=== PATIENT | male | born 1980 | race Caucasian/White ===

== ENCOUNTER 2019-08-30 10:38 | Inpatient (IN) | payer OTHER ==
[2019-08-30 11:06] VITALS: BMI 24.7
--- NOTE | 2019-08-30 11:27 | HP ---
COWS - Scale Resting Pulse: 1= [place] 81-100 Sweatin= Chills/Flushing Restless Observation: 1= Difficult to Sit Still Pupil Size: 1= Pupils >than Normal Bone or Joint Aches: 2= Severe Diffuse Aches Runny Nose/ Eye Tearin= Runny Nose/Eyes GI Upset > 30mins: 2= Nausea/Diarrhea Tremor Observation: 2= Slight Tremor Visible Yawning Observation: 1= 1-2x During Session Anxiety or Irritability: 2=Irritable/Anxious Goose Flesh Skin: 0=Smooth Skin COWS Score: 15 CIWA Score - Admission Criteria OASAS Guidelines: Admission for Medically Managed Detox: Requires at least one of the followin. CIWA greater than 12 2. Seizures within the past 24 hours 3. Delirium tremens within the past 24 hours 4. Hallucinations within the past 24 hours 5. Acute intervention needed for co occurring medical disorder 6. Acute intervention needed for co occurring psychiatric disorder 7. Severe withdrawal that cannot be handled at a lower level of care (continued vomiting, continued diarrhea, abnormal vital signs) requiring intravenous medication and/or fluids 8. Admitting History and Physical - Admission Chief Complaint: i need help to stop using heroin and cocaine History Source: Patient - Smoking History Smoking history: Current every day smoker Have you smoked in the past 12 months: Yes Aproximately how many cigarettes per day: 5 - Alcohol/Substance Use Hx Alcohol Use: No History of Substance Use: reports: Cocaine, Heroin - Social History Usual Living Arrangement: Yes: Alone Occupation: employ [employer] History of Recent Travel: No Other Social History: employed,smoke cigarette Admission [facility] Chief Complaint: i need help to stop using heroin and cocaine Allergies/Adverse Reactions: Allergies Allergy/AdvReac Type Severity Reaction Status Date / Time No Known Allergies Allergy Verified 08/30/19 10:57 History of Present Illness: this 39 years old male with heroin and cocaine dependence,seeking detox, withdrawal symptom, denied seizure denied syncope weight loss nicotine dependence last detox 2004 last rehab [facility] 2016 longest sobriety 3 years plan for out patient program after detox - Ebola screening Have you traveled outside of the country in the last 21 days: No (N) Have you had contact with anyone from an Ebola affected area: No Do you have a fever: No - Review of Systems Constitutional: Loss of Appetite, Malaise, Night Sweats, Changes in sleep EENT: reports: Tearing, Nose Congestion Respiratory: reports: No Symptoms reported Cardiac: reports: No Symptoms Reported GI: reports: Diarrhea, Nausea, Poor Appetite : reports: No Symptoms Reported Musculoskeletal: reports: Back Pain, Joint Pain, Muscle Pain Integumentary: reports: Dryness Neuro: reports: Headache, Tremors Endocrine: reports: No Symptoms Reported Hematology: reports: No Symptoms Reported Psychiatric: reports: No Sypmtoms Reported, Judgement Intact, Mood/Affect Appropiate, Orientated x3 Other Systems: Reviewed and Negative Patient History - Patient Medical History Hx Anemia: No Hx Asthma: Yes Hx Chronic Obstructive Pulmonary Disease (COPD): No Hx Cancer: No Hx Cardiac Disorders: No Hx Congestive Heart Failure: No Hx Hypertension: No Hx Hypercholesterolemia: No Hx Pacemaker: No HX Cerebrovascular Accident: No Hx Seizures: No Hx Dementia: No Hx Diabetes: No Hx Gastrointestinal Disorders: No Hx Liver Disease: No Hx Genitourinary Disorders: No Hx Sexually Transmitted Disorders: No Hx Renal Disease (ESRD): No Hx Thyroid Disease: No Hx Human Immunodeficiency Virus (HIV): No (last 2015) Hx Hepatitis C: No Hx Depression: No Hx Suicide Attempt: No Hx Bipolar Disorder: No Hx Schizophrenia: No Other Medical History: no suicidal,no homicidal - Patient Surgical History Past Surgical History: No - PPD History Previous Implant?: Yes Documented Results: Negative w/o proof Implanted On Prior [facility] Admission?: No PPD to be Administered?: Yes - Smoking Cessation Smoking history: Current every day smoker Have you smoked in the past 12 months: Yes Aproximately how many cigarettes per day: 5 Cigars Per Day: 0 Hx Chewing Tobacco Use: No Initiated information on smoking cessation: Yes 'Breaking Loose' booklet given: 08/30/19 - Substance & Tx. History Hx Alcohol Use: No Substance Use Type: Cocaine, Heroin Hx Substance Use Treatment: Yes ([address]) - Substances abused Heroin Substance route: Inhalation Frequency: Daily Amount used: 5 bags or more Age of first use: 21 Date of last use: 08/30/19 Cocaine Substance route: Inhalation Frequency: 1-2 times per week Amount used: 1/2 gram Age of first use: 21 Date of last use: 08/29/19 Admission Physical Exam BHS - Vital Signs Vital Signs: Vital Signs - 24 hr 08/30/19 11:00 Temperature 98.1 F Pulse Rate 87 Respiratory 20 Rate Blood Pressure 101/69 - Physical General Appearance: Yes: Moderate Distress, Tremorous, Irritable, Sweating, Anxious HEENTM: Yes: Normal ENT Inspection, LIZZ, Pharynx Normal Respiratory: Yes: Within Normal Limits, Lungs Clear, Normal Breath Sounds Neck: Yes: Within Normal Limits, Supple, Trachea in good position Breast: Yes: Within Normal Limits Cardiology: Yes: Within Normal Limits, Regular Rhythm, Regular Rate, S1, S2 Abdominal: Yes: Within Normal Limits, Normal Bowel Sounds, Non Tender, Flat Genitourinary: Yes: Within Normal Limits Back: Yes: Muscle Spasm Musculoskeletal: Yes: Back pain, Joint Stiffness, Muscle Pain Extremities: Yes: Tremors Neurological: Yes: [employer] commanding [employer] II-XII NML intact, Fully Oriented, Alert, Motor Strength 5/5 Integumentary: Yes: Dry Lymphatic: Yes: Within Normal Limits - Diagnostic (1) Opioid dependence with withdrawal Current Visit: Yes Status: Acute (2) Cocaine dependence Current Visit: Yes Status: Acute (3) Nicotine dependence Current Visit: Yes Status: Acute (4) Asthma Current Visit: Yes Status: Acute Cleared for Admission [facility] - Detox or Rehab [facility] Level of Care: Medically Managed Detox Regimen/Protocol: Methadone Inpatient Rehab Admission - Rehab Decision to Admit Inpatient rehab admission?: No
[2019-08-30] MEDS ORDERED: METHADONE HCL 10 MG TABLET (FOR DETOX USE ONLY) PO ONE (11:33)
[2019-08-30] MEDS ORDERED: hydrOXYzine PAMOATE 25 MG CAPSULE (FP) PO PRN (11:33)
[2019-08-30] MEDS ORDERED: IBUPROFEN 400 MG TABLET (FP) PO PRN (11:33)
[2019-08-30] MEDS ORDERED: MAGNESIUM HYDROX 2400MG/30ML ORAL SUSPENSION 30 ML CUP PO PRN (11:33)
[2019-08-30] MEDS ORDERED: MENTHOL/PHENOL 1 EACH UD MM PRN (11:33)
[2019-08-30] MEDS ORDERED: ACETAMINOPHEN 325 MG TABLET (FP) PO PRN ×2 (11:33)
[2019-08-30] MEDS ORDERED: BISMUTH SUBSALICYLATE 524 MG/30 ML UD PO PRN (11:33)
[2019-08-30] MEDS ORDERED: cloNIDine HCL 0.1 MG TABLET PO PRN (11:33)
[2019-08-30] MEDS ORDERED: MAGNESIUM CITRATE 300 ML BOTTLE PO PRN (11:33)
[2019-08-30] MEDS ORDERED: MAG HYDROX/AL HYDROX/SIMETH 30 ML UNIT-DOSE CUP PO PRN (11:33)
[2019-08-30] MEDS ORDERED: ALBUTEROL SO4 8 GM HFA INHALER IH PRN (11:39)
[2019-08-30] MEDS: diazePAM 5 MG TABLET PO PRN ×2 (13:02→22:11)
[2019-08-30] MEDS: BUDESONIDE/FORMETEROL FUMARATE 80/4.5 mcg INHALER IH SCH (22:09)
[2019-08-30] MEDS: THIAMINE HCL 100 MG TABLET (FP) PO SCH (22:09)
[2019-08-30] MEDS: MELATONIN 5 MG TABLETS PO PRN (22:12)
[2019-08-31] MEDS ORDERED: METHADONE HCL 5 MG TABLET (FOR DETOX USE ONLY) PO ONE (10:00)
[2019-08-31 10:01] LABS: ALBUMIN 3.3 g/dl (3.4-5.0); BILIRUBIN,TOTAL 0.2 mg/dL (0.2-1); BLOOD UREA NITROGEN 15.1 mg/dL (7-18); CALCIUM 8.6 mg/dL (8.5-10.1); CREATININE 0.9 mg/dL (0.55-1.3); POTASSIUM 4.2 mmol/L (3.5-5.1); TOT PROT 5.9 g/dl (6.4-8.2)
[2019-08-31] MEDS: BUDESONIDE/FORMETEROL FUMARATE 80/4.5 mcg INHALER IH SCH ×2 (10:10→22:14)
[2019-08-31] MEDS: PRENATAL VITAMINS W/ FOLIC ACID TABLET (FP) PO SCH (10:11)
[2019-08-31] MEDS: diazePAM 5 MG TABLET PO PRN ×3 (10:12→22:16)
[2019-08-31] MEDS: METHOCARBAMOL 500 MG TABLET PO PRN ×2 (10:12→18:11)
[2019-08-31 10:14] LABS: HEMATOCRIT 34.1 % (35.4-49); HEMOGLOBIN 11.7 GM/dL (11.7-16.9); MCHC 34.4 g/dl (32.0-35.9); MEAN PLT VOLUME 9.8 fl (7.5-11.1); PLATELET COUNT 195 K/MM3 (134-434); RBC 3.79 M/mm3 (4.00-5.60); WHITE BLOOD COUNT 5.6 K/mm3 (4.0-10.0)
--- NOTE | 2019-08-31 10:26 | PN ---
BHS COWS - Scale Resting Pulse: 1= [place] 81-100 Sweatin=Flushed/Facial Moisture Restless Observation: 1= Difficult to Sit Still Pupil Size: 0= Normal to Room Light Bone or Joint Aches: 2= Severe Diffuse Aches Runny Nose/ Eye Tearin= Nasal Congestion GI Upset > 30mins: 0= None Tremor Observation of Outstretched Hands: 1= Tremor Dennis, Not Seen Yawning Observation: 1= 1-2x During Session Anxiety or Irritability: 1=Feels Anxious/Irritable Goose Flesh Skin: 0=Smooth Skin COWS Score: 10 BHS Progress Note (SOAP) Subjective: sweats shakes interrupted sleep agitation body aches Objective: 08/31/19 10:25 Vital Signs Temperature 98.0 F 08/31/19 09:45 Pulse Rate 93 H 08/31/19 09:45 Respiratory Rate 18 08/31/19 09:45 Blood Pressure 116/60 08/31/19 09:45 O2 Sat by Pulse Oximetry (%) Laboratory Tests 08/31/19 08/31/19 06:50 06:50 Sodium 140 Potassium 4.2 Chloride 105 Carbon Dioxide 31 Anion Gap 4 L BUN 15.1 Creatinine 0.9 Est GFR (CKD-EPI)AfAm 125.13 Est GFR (CKD-EPI)NonAf 107.97 Random Glucose 93 Calcium 8.6 Total Bilirubin 0.2 AST 14 L ALT 25 Alkaline Phosphatase 43 L Total Protein 5.9 L Albumin 3.3 L RPR Titer Nonreactive labs noted aaox3 ambulating no acute distress Assessment: 08/31/19 10:26 withdrawals Plan: continue detox increase fluids
--- NOTE | 2019-08-31 14:07 | EKG ---
Test Reason : Blood Pressure : / mmHG Vent. Rate : 062 BPM Atrial Rate : 062 BPM P-R Int : 160 ms QRS Dur : 082 ms QT Int : 412 ms P-R-T Axes : 068 074 052 degrees QTc Int : 418 ms NORMAL SINUS RHYTHM NORMAL ECG NO PREVIOUS ECGS AVAILABLE Confirmed by GIANA HIGHTOWER MD ([id number]) on 08/31/2019 2:07:28 PM Referred By: Confirmed By:GIANA HIGHTOWER MD
[2019-08-31] MEDS: THIAMINE HCL 100 MG TABLET (FP) PO SCH (22:14)
[2019-08-31] MEDS: MELATONIN 5 MG TABLETS PO PRN (22:17)
[2019-09-01 09:45] VITALS: BP 129/80; PULSE 106; TEMP 98.4
[2019-09-01] MEDS ORDERED: METHADONE HCL 10 MG TABLET (FOR DETOX USE ONLY) PO ONE (10:00)
--- NOTE | 2019-09-01 10:07 | PN ---
BHS COWS - Scale Resting Pulse: 0= NE 80 or Below Sweatin= Chills/Flushing Restless Observation: 1= Difficult to Sit Still Pupil Size: 0= Normal to Room Light Bone or Joint Aches: 1= Mild Discomfort Runny Nose/ Eye Tearin= None GI Upset > 30mins: 0= None Tremor Observation of Outstretched Hands: 0= None Yawning Observation: 0= None Anxiety or Irritability: 1=Feels Anxious/Irritable Goose Flesh Skin: 0=Smooth Skin COWS Score: 4 BHS Progress Note (SOAP) Subjective: Pt completing OUD detox tomorrow. Would like to go to outpt treatment after discharge at [facility]. d/w pt suboxone or methadone MAT- pt prefers abstinence Objective: 09/01/19 10:03 Vital Signs - 24 hr 08/31/19 08/31/19 08/31/19 13:37 16:38 20:20 Temperature 98.6 F 97.3 F L 96.8 F L Pulse Rate 90 64 82 Respiratory 18 18 18 Rate Blood Pressure 147/69 119/67 118/65 09/01/19 09/01/19 09/01/19 00:30 03:30 06:00 Temperature 97.7 F Pulse Rate 70 Respiratory 18 18 18 Rate Blood Pressure 121/59 L 09/01/19 09:44 Temperature 98.4 F Pulse Rate 106 H Respiratory 18 Rate Blood Pressure 129/80 restless, agitated a/p: OUD- methadone detox protocol. f/u outpt at [facility] Plan: pt to be discharged tomorrow-
[2019-09-01] MEDS: BUDESONIDE/FORMETEROL FUMARATE 80/4.5 mcg INHALER IH SCH (10:19)
[2019-09-01] MEDS: PRENATAL VITAMINS W/ FOLIC ACID TABLET (FP) PO SCH (10:19)
--- NOTE | 2019-09-01 12:07 | DS ---
[facility] Detox Discharge Summary Admission Date: 08/30/19 Discharge Date: 09/01/19 - History Present History: Opioid Dependence - Physical Exam Results Vital Signs: Vital Signs Temperature 98.4 F 09/01/19 09:44 Pulse Rate 106 H 09/01/19 09:44 Respiratory Rate 18 09/01/19 09:44 Blood Pressure 129/80 09/01/19 09:44 O2 Sat by Pulse Oximetry (%) Pertinent Admission Physical Exam Findings: Pt states would like to leave today- was to have rec'd 5 mg methadone dose tomorrow- d/w pt at length re MAT methadone/Bupe/vivitrol. Pt states would like try to abstinence- will get this from [facility] outpt. Pt does not need any meds alert and oriented today - Treatment Hospital Course: Detox Protocol Followed, Detoxed Safely, Responded well, Discharged Condition Good Patient has Accepted a Rehab Referral to: [facility] - Medication Discharge Medications: Ambulatory Orders Fluticasone/Salmeterol [Advair 250-50 Diskus] 1 each IH BID 08/30/19 - AMA Did Patient Leave Against Medical Advice: No
[2019-09-02] MEDS ORDERED: METHADONE HCL 5 MG TABLET (FOR DETOX USE ONLY) PO ONE (06:00)
== END 2019-09-01 12:55 | disposition home or self-care (01) | DRG 773 ==
LOC: YASAS 10:38 → Y6N 12:18
PROVIDERS: ADMIT Allergy & Immunology; ATTEND Allergy & Immunology
PROC: HZ2ZZZZ Detoxification Services for Substance Abuse Treatment (ICD-10-PCS; principal; 2019-08-30)
DX: F11.23 Opioid dependence with withdrawal (principal); F14.20 Cocaine dependence, uncomplicated; F17.210 Nicotine dependence, cigarettes, uncomplicated; J45.909 Unspecified asthma, uncomplicated
CPT/HCPCS: 36415; 80053; 85027; 86593; 87389; 93005; 93010

== ENCOUNTER 2024-05-09 11:09 | Inpatient (IN) | payer OTHER ==
[2024-05-09 12:51] VITALS: BMI 25.2
[2024-05-09] MEDS ORDERED: POLYETHYLENE GLYCOL (HEALTHYLAX) 3350 17 GM PACKET PO PRN (13:19)
[2024-05-09] MEDS ORDERED: ACETAMINOPHEN 325 MG TABLET (FP) PO PRN (13:19)
[2024-05-09] MEDS ORDERED: MAG HYDROX/AL HYDROX/SIMETH 30 ML UNIT-DOSE CUP PO PRN (13:19)
[2024-05-09] MEDS ORDERED: BENZOCAINE/MENTHOL (CHLORASEPTIC ) LOZENGE MM PRN (13:19)
[2024-05-09] MEDS ORDERED: BISMUTH SUBSALICYLATE 262 MG/15 ML BTL PO PRN (13:19)
[2024-05-09] MEDS ORDERED: MAGNESIUM HYDROX 2400MG/30ML ORAL SUSPENSION 30 ML CUP PO PRN (13:19)
[2024-05-09] MEDS ORDERED: NALOXONE HCL 0.4 MG/ML VIAL IM PRN (13:19)
[2024-05-09] MEDS ORDERED: guaiFENesin 600 MG TABLET.ER (FP) PO PRN (13:19)
[2024-05-09] MEDS ORDERED: NALOXONE (NARCAN) HCL 4 MG/0.1 ML SPRAY NS PRN (13:19)
[2024-05-09] MEDS ORDERED: BENZONATATE 200 MG CAPSULE PO PRN (13:19)
[2024-05-09] MEDS ORDERED: IBUPROFEN 400 MG TABLET (FP) PO PRN (13:19)
[2024-05-09] MEDS ORDERED: methaDONE HCL 10 MG TABLET (FOR DETOX USE ONLY) ONE (13:41)
[2024-05-09] MEDS ORDERED: BUPRENORPHINE/NALOXONE 0.5 MG/0.125 MG FILM ONE (13:41)
[2024-05-09] MEDS: methaDONE HCL 10 MG TABLET (FOR DETOX USE ONLY) PO ONE (13:59)
[2024-05-09] MEDS: BUPRENORPHINE/NALOXONE 0.5 MG/0.125 MG FILM SL ONE ×2 (14:02→23:04)
[2024-05-09] MEDS: PRENATAL VITAMINS W/ FOLIC ACID TABLET (FP) PO SCH (14:02)
[2024-05-09] MEDS: NICOTINE 7 MG/24 HOURS TOPICAL PATCH TD SCH (14:02)
[2024-05-09] MEDS ORDERED: cloNIDine HCL 0.1 MG TABLET ONE (14:05)
[2024-05-09] MEDS: cloNIDine HCL 0.1 MG TABLET PO SCH (14:08)
[2024-05-09] MEDS: BUDESONIDE/FORMETEROL FUMARATE 80/4.5 mcg INHALER IH SCH (14:20)
[2024-05-09] MEDS: ALBUTEROL SO4 HFA INHALER IH PRN (14:25)
[2024-05-09] MEDS: THIAMINE 100 MG TABLET PO SCH (22:43)
[2024-05-09] MEDS: MELATONIN 5 MG TABLETS PO SCH (22:43)
[2024-05-10] MEDS: BUPRENORPHINE/NALOXONE 0.5 MG/0.125 MG FILM SL SCH (09:10)
[2024-05-10 11:38] LABS: POTASSIUM 4.7 mmol/L (3.5-5.1)
[2024-05-10 11:42] LABS: HEMATOCRIT 36.2 % (35.4-49); HEMOGLOBIN 12.4 GM/dL (11.7-16.9); MCH 31.4 pg (25.7-33.7); MCHC 34.3 g/dl (32.0-35.9); MEAN CELL VOLUME 91.4 fl (80-96); PLATELET COUNT 262 10^3/uL (134-434); RBC 3.96 M/mm3 (4.00-5.60); RDW 14.3 % (11.9-15.9); WHITE BLOOD COUNT 5.3 K/mm3 (4.0-10.0)
[2024-05-10 11:57] LABS: ALBUMIN 3.3 g/dl (3.4-5.0); BLOOD UREA NITROGEN 11.2 mg/dL (7-18); CALCIUM 9.2 mg/dL (8.5-10.1)
[2024-05-10 12:01] LABS: BILIRUBIN,TOTAL 0.4 mg/dL (0.2-1); CREATININE 0.9 mg/dL (0.55-1.3); TOT PROT 6.6 g/dl (6.4-8.2)
[2024-05-10] MEDS: hydrOXYzine PAMOATE 25 MG CAPSULE (FP) PO PRN (17:27)
[2024-05-10] MEDS: METHOCARBAMOL 500 MG TABLET PO PRN (22:22)
[2024-05-11] MEDS: IBUPROFEN 600 MG TABLET (FP) PO PRN (06:43)
[2024-05-11] MEDS: BUPRENORPHINE/NALOXONE 2 MG/0.5 MG FILM PACKET SL SCH (09:19)
[2024-05-11] MEDS: methaDONE HCL 10 MG TABLET (FOR DETOX USE ONLY) PO ONE (09:19)
[2024-05-12] MEDS: DICYCLOMINE HCL 10 MG CAPSULE PO PRN (01:06)
[2024-05-12] MEDS: LOPERAMIDE HCL 2 MG CAPSULE PO PRN (06:00)
[2024-05-12] MEDS: BUPRENORPHINE/NALOXONE 4 MG/1 MG FILM PACKET SL SCH (09:59)
[2024-05-13] MEDS: MELATONIN 5 MG TABLETS PO ONE (00:52)
[2024-05-13] MEDS: methaDONE HCL 10 MG TABLET (FOR DETOX USE ONLY) PO ONE (10:17)
[2024-05-13] MEDS: BUPRENORPHINE/NALOXONE 8 MG/2 MG FILM PACKET SL SCH (10:17)
[2024-05-14] MEDS: BUPRENORPHINE/NALOXONE 8 MG/2 MG FILM PACKET SL ONE (09:21)
[2024-05-14] MEDS ORDERED: BUPRENORPHINE/NALOXONE 8 MG/2 MG FILM PACKET SL SCH (10:00)
[2024-05-14] MEDS: ONDANSETRON *ODT* 4 MG TABLET SL PRN (12:39)
[2024-05-14 13:08] VITALS: BP 136/85; PULSE 70; RESP 18; TEMP 97.8
== END 2024-05-14 13:45 | disposition home or self-care (01) | DRG 773 ==
LOC: YASAS 11:09 → Y6N 13:30
PROVIDERS: ADMIT Allergy & Immunology; ATTEND Surgery
PROC: HZ2ZZZZ Detoxification Services for Substance Abuse Treatment (ICD-10-PCS; principal; 2024-05-09)
DX: F11.23 Opioid dependence with withdrawal (principal); F14.20 Cocaine dependence, uncomplicated; F17.213 Nicotine dependence, cigarettes, with withdrawal; J45.20 Mild intermittent asthma, uncomplicated; G47.00 Insomnia, unspecified; Z59.02 Unsheltered homelessness
CPT/HCPCS: 36415; 80053; 80305; 80307; 85027; 86780; 87811; 93005; 93010; Q0162

== ENCOUNTER 2024-07-21 12:04 | Inpatient (IN) | payer OTHER ==
[2024-07-21 13:32] VITALS: BMI 26.6
[2024-07-21] MEDS ORDERED: ALBUTEROL SO4 HFA INHALER IH PRN (16:18)
[2024-07-21] MEDS ORDERED: methaDONE HCL 10 MG TABLET (FOR DETOX USE ONLY) ONE (16:58)
[2024-07-21] MEDS: methaDONE HCL 10 MG TABLET (FOR DETOX USE ONLY) PO ONE (17:01)
[2024-07-21] MEDS: cloNIDine HCL 0.1 MG TABLET PO SCH (17:36)
[2024-07-21] MEDS: BUPRENORPHINE/NALOXONE 0.5 MG/0.125 MG FILM SL ONE (22:55)
[2024-07-21] MEDS: BUDESONIDE/FORMETEROL FUMARATE 80/4.5 mcg INHALER IH SCH (22:56)
[2024-07-22] MEDS: BUPRENORPHINE/NALOXONE 0.5 MG/0.125 MG FILM SL SCH (10:18)
[2024-07-23] MEDS: ESCITALOPRAM OXALATE 10 MG TABLET PO SCH (09:31)
[2024-07-23] MEDS: methaDONE HCL 10 MG TABLET (FOR DETOX USE ONLY) PO ONE (09:31)
[2024-07-23] MEDS: BUPRENORPHINE/NALOXONE 2 MG/0.5 MG FILM PACKET SL SCH (09:32)
[2024-07-23 14:05] LABS: HEMATOCRIT 37.4 % (35.4-49); HEMOGLOBIN 12.6 GM/dL (11.7-16.9); MCH 31.2 pg (25.7-33.7); MCHC 33.6 g/dl (32.0-35.9); MEAN CELL VOLUME 92.9 fl (80-96); MEAN PLT VOLUME 9.1 fl (7.5-11.1); PLATELET COUNT 345 10^3/uL (134-434); RBC 4.03 M/mm3 (4.00-5.60); RDW 13.7 % (11.9-15.9); WHITE BLOOD COUNT 6.2 K/mm3 (4.0-10.0)
[2024-07-23 14:36] LABS: POTASSIUM 4.8 mmol/L (3.5-5.1)
[2024-07-23 14:50] LABS: ALBUMIN 3.6 g/dl (3.4-5.0); BLOOD UREA NITROGEN 13.6 mg/dL (7-18); CALCIUM 9.3 mg/dL (8.5-10.1)
[2024-07-23 14:55] LABS: TOT PROT 7.1 g/dl (6.4-8.2)
[2024-07-23 16:03] LABS: BILIRUBIN,TOTAL 0.4 mg/dL (0.2-1)
[2024-07-24] MEDS: BUPRENORPHINE/NALOXONE 4 MG/1 MG FILM PACKET SL SCH (10:01)
[2024-07-25] MEDS: BUPRENORPHINE/NALOXONE 8 MG/2 MG FILM PACKET SL SCH (09:51)
[2024-07-25] MEDS: methaDONE HCL 10 MG TABLET (FOR DETOX USE ONLY) PO ONE (09:52)
[2024-07-25] MEDS: diazePAM 5 MG TABLET PO PRN (22:00)
[2024-07-26 10:04] VITALS: BP 104/72; PULSE 73; RESP 16; TEMP 97.8
[2024-07-26] MEDS: BUPRENORPHINE/NALOXONE 8 MG/2 MG FILM PACKET SL SCH (10:29)
== END 2024-07-26 12:02 | disposition other institution (70) | DRG 773 ==
LOC: YASAS 12:04 → Y6N 16:45
PROVIDERS: ADMIT Surgery; ATTEND Surgery
PROC: HZ2ZZZZ Detoxification Services for Substance Abuse Treatment (ICD-10-PCS; principal; 2024-07-21)
DX: F11.23 Opioid dependence with withdrawal (principal); F14.20 Cocaine dependence, uncomplicated; F12.20 Cannabis dependence, uncomplicated; F17.210 Nicotine dependence, cigarettes, uncomplicated; F19.24 Other psychoactive substance dependence with psychoactive substance-induced mood disorder; F32.A Depression, unspecified; J45.20 Mild intermittent asthma, uncomplicated; Z62.810 Personal history of physical and sexual abuse in childhood; Z56.0 Unemployment, unspecified; Z59.00 Homelessness unspecified
CPT/HCPCS: 36415; 80053; 80305; 80307; 85027; 86780; 87635; 87811; 93005; 93010

== ENCOUNTER 2024-07-26 12:24 | Inpatient (IN) | payer OTHER ==
[~2024-07-26 12:24] MED LIST: ACETAMINOPHEN 325 MG TABLET (FP) PO PRN; ALBUTEROL SO4 HFA INHALER IH PRN; BENZOCAINE/MENTHOL (CHLORASEPTIC ) LOZENGE MM PRN; BENZONATATE 200 MG CAPSULE PO PRN; IBUPROFEN 400 MG TABLET (FP) PO PRN; LOPERAMIDE HCL 2 MG CAPSULE PO PRN; MAG HYDROX/AL HYDROX/SIMETH 30 ML UNIT-DOSE CUP PO PRN; MAGNESIUM HYDROX 2400MG/30ML ORAL SUSPENSION 30 ML CUP PO PRN; NALOXONE (NARCAN) HCL 4 MG/0.1 ML SPRAY NS PRN; NALOXONE (NYS OPIOID OVERDOSE PROGRAM) 4 MG/0.1 ML SPRAY NS PRN; NICOTINE POLACRILEX 2 MG LOZENGE BC PRN; POLYETHYLENE GLYCOL (HEALTHYLAX) 3350 17 GM PACKET PO PRN; guaiFENesin 600 MG TABLET.ER (FP) PO PRN
[2024-07-26] MEDS: THIAMINE 100 MG TABLET PO SCH (21:26)
[2024-07-26] MEDS: MELATONIN 5 MG TABLETS PO SCH (21:26)
[2024-07-26] MEDS: hydrOXYzine PAMOATE 25 MG CAPSULE (FP) PO PRN (21:27)
[2024-07-26] MEDS: BUDESONIDE/FORMETEROL FUMARATE 80/4.5 mcg INHALER IH SCH (21:27)
[2024-07-26] MEDS: BUPRENORPHINE/NALOXONE 8 MG/2 MG FILM PACKET SL SCH (21:30)
[2024-07-27] MEDS: ESCITALOPRAM OXALATE 10 MG TABLET PO SCH (09:50)
[2024-07-27] MEDS: PRENATAL VITAMINS W/ FOLIC ACID TABLET (FP) PO SCH (09:50)
[2024-07-27] MEDS: FLU VACCINE (FLULAVAL) PF 45 MCG/0.5 ML SYRINGE 2024-2025 IM ONE (09:58)
[2024-08-09] MEDS: NICOTINE POLACRILEX 2 MG GUM BUC PRN (21:38)
[2024-08-10] MEDS: IBUPROFEN 600 MG TABLET (FP) PO PRN (07:11)
[2024-08-21 06:58] VITALS: RESP 16
[2024-08-21] MEDS: BUPRENORPHINE/NALOXONE 8 MG/2 MG FILM PACKET SL SCH (21:21)
[2024-08-23 06:58] VITALS: BP 139/71; PULSE 78; TEMP 97.9
[2024-08-23] MEDS: NALOXONE (NYS OPIOID OVERDOSE PROGRAM) 4 MG/0.1 ML SPRAY NS SCH (09:00)
== END 2024-08-23 11:00 | disposition home or self-care (01) | DRG 772 ==
LOC: YASAS 12:24 → Y5N 12:26
PROVIDERS: ADMIT Allergy & Immunology; ATTEND Psychiatry & Neurology Pain Medicine
PROC: HZ42ZZZ Group Counseling for Substance Abuse Treatment, Cognitive-Behavioral (ICD-10-PCS; principal; 2024-07-26)
DX: F10.20 Alcohol dependence, uncomplicated (principal); F14.20 Cocaine dependence, uncomplicated; F12.20 Cannabis dependence, uncomplicated; F17.210 Nicotine dependence, cigarettes, uncomplicated; F41.9 Anxiety disorder, unspecified; F32.A Depression, unspecified
CPT/HCPCS: 80305; 90656; G0008